=== PATIENT | male | born 1965 | race Caucasian/White ===

== ENCOUNTER 2017-02-07 06:00 | Emergency (ER) | payer SELFPAY ==
[~2017-02-07] VITALS: Ht 175.3 cm; Wt 95.3 kg
[2017-02-07 06:05] VITALS: BP_SYST 141
[2017-02-07] MEDS ORDERED: LOSA50TA3 PO (06:20)
[2017-02-07] MEDS ORDERED: SIMV20TA6 PO (06:20)
[2017-02-07] MEDS ORDERED: LEVO50TA77 PO (06:20)
[2017-02-07] MEDS ORDERED: GLU850 PO (06:20)
[2017-02-07] MEDS ORDERED: GLIP10TA74 PO (06:20)
[2017-02-07] MEDS ORDERED: NPH,100V SUBCUT (06:20)
[2017-02-07] MEDS ORDERED: LIDOCAINE 1%, 20 ML MDV 20 ML ONE (07:56)
[2017-02-07 09:26] VITALS: BP_SYST 138
== END 2017-02-07 09:26 | disposition home or self-care (01) ==
LOC: SED 06:00
DX: S91.312A Laceration without foreign body, left foot, initial encounter (principal); E11.9 Type 2 diabetes mellitus without complications; I10 Essential (primary) hypertension; W18.40XA Slipping, tripping and stumbling without falling, unspecified, initial encounter; Y93.89 Activity, other specified; Y92.89 Other specified places as the place of occurrence of the external cause; Y99.8 Other external cause status
CPT/HCPCS: 12004; 73630; 99284; J2001